=== PATIENT | female | born 1990 | race Two or more races ===

== ENCOUNTER 2018-10-27 18:34 | Emergency (ER) | payer SELFPAY ==
[~2018-10-27] VITALS: Ht 157.5 cm; Wt 72.1 kg
[2018-10-27 19:02] LABS: BILIRUBIN,URINE NEGATIVE (NEG); CLARITY,URINE CLEAR; COLOR,URINE YELLOW; NITRITE,URINE NEGATIVE (NEG); PROTEIN,URINE NEGATIVE (NEG-TRACE)
[2018-10-27 19:09] LABS: AMORPHOUS SEDIMENT,UR PRESENT /HPF; BACTERIA,URINE MODERATE /HPF (0-FEW); RBC,URINE 0 /HPF (0-2); SQUAMOUS EPITHELIAL CELL,UR MANY /LPF; WBC,URINE OCC /HPF (0-4); YEAST,URINE PRESENT /HPF
--- NOTE | 2018-10-27 20:03 | PHYS DOC ---
Past Medical History Past Medical History: No Pertinent History Past Surgical History: Alcohol Use: None Drug Use: None Adult General Chief Complaint Chief Complaint: ABDOMINAL PAIN HPI HPI 28-year-old female presents to ER for complaints of low abd pain radiating across lower abd. She reports she has had some vaginal discharge. She reports she took Tylenol at 10 AM with minimal relief in pain. She reports she's been for the past 6 years and monogamous relationship denies any concerns for STDs. Patient denies urinary symptoms, fever, vomiting, or diarrhea. She reports she had slight nausea with pain- currently denies. LMP 10/12/18. Patient denies any recent falls or injury. Patient speaks minimal Romansh and her sister is at bedside who is translating. Offered translation phone for communication however patient wanted sister to translate. Review of Systems Review of Systems Constitutional: Denies fever or chills. Denies fatigue Respiratory: Denies cough or shortness of breath [] Cardiovascular: No additional information not addressed in HPI [] GI: Denies vomiting, bloody stools or diarrhea. Reports bilat. lower abd/ suprapubic pain- intermittent nausea with pain : Denies dysuria or hematuria. Reports small amount of vaginal discharge white with no odor. Denies abnormal vaginal bleeding Musculoskeletal: Denies back pain or joint pain [] Integument: Denies rash, swelling or skin lesions [] Neurologic: Denies headache, focal weakness or sensory changes [] All other systems were reviewed and found to be within normal limits, except as documented in this note. Current Medications Current Medications Current Medications Medications (Trade) Dose Ordered Sig/Shawn Start Time Stop Time Status Last Admin Dose Admin Acetaminophen/ Hydrocodone Bitart (Lortab 5/325) 1 tab STK-MED ONCE 10/27/18 21:44 10/27/18 21:45 DC Allergies Allergies Allergies Coded Allergies Type Severity Reaction Last Updated Verified No Known Drug Allergies 10/27/18 No Physical Exam Physical Exam Constitutional: Well developed, well nourished, no acute distress, non-toxic appearance. [] HENT: Normocephalic, atraumatic, oropharynx moist, nose normal. [] Eyes: Pupils equal, conjunctiva normal, no discharge. [] Neck: Normal range of motion, supple Cardiovascular: Heart rate regular rhythm, no murmur [] Lungs & Thorax: Bilateral breath sounds clear to auscultation. Resp. equal/ nonlabored Abdomen: Bowel sounds normal, soft- no rigidity or distention, diffuse tenderness across lower abdomen into suprapubic with no focal area, no rebound tenderness, no masses Skin: Warm, dry, no erythema, no rash. [] Back: No tenderness, no CVA tenderness. [] Extremities: No tenderness, no cyanosis, no clubbing, ROM intact, no edema. [] Neurologic: Alert and oriented X 3, normal motor function, normal sensory function, no focal deficits noted. [] Psychologic: Affect normal, judgement normal, mood normal. [] Current Patient Data Vital Signs Vital Signs Date Time Temp Pulse Resp B/P (MAP) Pulse Ox O2 Delivery O2 Flow Rate FiO2 10/27/18 21:49 18 98 Room Air 10/27/18 21:46 67 116/58 (77) 10/27/18 18:40 97.6 97.6 Lab Values Laboratory Tests Test 10/27/18 18:37 10/27/18 18:42 Urine Collection Type Unknown Urine Color Yellow Urine Clarity Clear Urine pH 7.0 Urine Specific [place] 1.020 Urine Protein Negative mg/dL (NEG-TRACE) Urine Glucose (UA) Negative mg/dL (NEG) Urine Ketones (Stick) Negative mg/dL (NEG) Urine Blood Negative (NEG) Urine Nitrite Negative (NEG) Urine Bilirubin Negative (NEG) Urine Urobilinogen Dipstick 1.0 mg/dL (0.2 mg/dL) Urine Leukocyte Esterase Small (NEG) Urine RBC 0 /HPF (0-2) Urine WBC Occ /HPF (0-4) Urine Squamous Epithelial Cells Many /LPF Urine Amorphous Sediment Present /HPF Urine Bacteria Moderate /HPF (0-FEW) Urine Mucus Slight /LPF Urine Yeast Present /HPF POC Urine HCG, Qualitative Hcg negative (Negative) Microbiology 10/27/18 Wet Prep - Final, Complete EKG EKG [] Radiology/Procedures Radiology/Procedures Pelvic Exam: KRISTIE Bolaños present 1945 Abdomen: Diffuse tenderness in all lower abd/suprapubic area- no distention External Genitalia: Normal Skin-no lesions or rash Speculum: Normal vaginal mucosa- no erythema, cervical os closed, normal cervical discharge- scant amount of white discharge no odor Bimanual: No adnexal masses- diffuse tenderness on bimanual exam, No CMT PROCEDURE: PELVIS ULTRASOUND Examination: PELVIS ULTRASOUND History: pelvic pain x 2 days
lmp 10/12/18

neg preg urine

dom follicle on ro 1.9 x 1.5 x 1.9 cm
+ blood flow bilat ovaries
uterus appears anteverted, retroflexed Comparison/Correlation: None Findings: Transabdominal pelvic ultrasound exam was performed. Uterus measures 11.4 cm x 5.6 cm x 3.9 cm. It is retroflexed. Endometrial thickness is 0.5 cm. No intrauterine gestation or other fluid collection. Right adnexa measures 3 cm x 2.17 x 2.6 cm. Left adnexa measures 2.2 cm x 2 cm x 1.6 cm. No ovarian torsion. Right ovarian follicle measuring 1.9 cm diameter is present and appears physiologic. No pelvic free fluid. Impression: No suspicious pelvic process. Electronically signed by: Kenrick Leslie MD (10/27/2018 10:03 PM) [facility] DICTATED and SIGNED BY: KENRICK LESLIE MD DATE: 10/27/182151 Course & Med Decision Making Course & Med Decision Making Pertinent Labs and Imaging studies reviewed. (See chart for details) 2204: Patient was evaluated in the ER with complaints of lower abdominal pain which is been ongoing for the past couple of days. Patient did have yeast reported on her UA. She did have bilateral adnexal tenderness so ultrasound was obtained- with results "Right ovarian follicle measuring 1.9 cm diameter is present"- otherwise no other abnormal findings on imaging. This was discussed with patient and her sister who continues to translate. Patient on reexamination has diffuse tenderness in all abdomen with no focal area-no rebound tenderness, distention, or rigidity. Patient initially had tenderness only on palp. of lower abdomen and so discussed obtaining labs for further evaluation. Patient is wanting no additional testing at this time stating she plans to follow up for further care and treatment outpatient with primary care physician. Patient's sister reports she has episodes of menstrual cramps which are similar to what patient is experiencing. Discussed [id number] options for menstrual cramps surges Midol. Will provide patient with single dose of Diflucan for yeast and small quantity of [place] with discharge paperwork. Will provide clinic and physician referral information for follow-up purposes with discharge paperwork. Patient's vital signs are stable and she remains afebrile at 98.6. She remains nontoxic in appearance and in no visible distress at this time. She continues to deny any nausea and has had no vomiting episodes while in the ER. Education provided on signs and symptoms to return to ER for and discharge instructions were discussed. Dragon Disclaimer Dragon Disclaimer This electronic medical record was generated, in whole or in part, using a voice recognition dictation system. Departure Departure Impression: Primary Impression: Abdominal pain Additional Impression: Yeast infection Disposition: HOME, SELF-CARE Condition: STABLE Referrals: NO PCP (PCP) Patient Instructions: Abdominal Pain (Nonspecific) Additional Instructions: You preferred to have no labs done while in the Emergency Department with plans to follow-up outpatient with primary doctor for further evaluation. As discussed if symptoms worsen return to Emergency Department for re-evaluation. You can take [id number]-[id number] ibuprofen as needed for pain as directed on container. As discussed you can try [id number] menstrual cramp medication such as Midol as directed on container. Your urine had yeast in it so you are being provided with prescription for single dose of Diflucan as treatment. Scripts Hydrocodone/Apap 5-325 (NORCO 5-325 TABLET) 1 Each Tablet 1 TAB PO PRN Q6HRS PRN for PAIN, #8 TAB 0 Refills Prov: GIDEON GUNTER APRN 10/27/18 Fluconazole (DIFLUCAN) 150 Mg Tablet 1 TAB PO ONCE, #1 TAB 0 Refills Prov: GIDEON GUNTER APRN 10/27/18 Problem Qualifiers GIDEON GUNTER APRN Oct 27, 2018 20:03
[2018-10-27] MEDS ORDERED: HYDROcodone/APAP 5/325MG 1 TAB TABLET ONE (21:44)
[2018-10-27] MEDS ORDERED: HYDROcodone/APAP 5/325MG 1 TAB TABLET PO ONE (21:45)
[2018-10-27 21:46] VITALS: BP 116/58
--- NOTE | 2018-10-27 22:08 | RAD ---
Examination: PELVIS ULTRASOUND History: pelvic pain x 2 days
lmp 10/12/18

neg preg urine

dom follicle on ro 1.9 x 1.5 x 1.9 cm
+ blood flow bilat ovaries
uterus appears anteverted, retroflexed Comparison/Correlation: None Findings: Transabdominal pelvic ultrasound exam was performed. Uterus measures 11.4 cm x 5.6 cm x 3.9 cm. It is retroflexed. Endometrial thickness is 0.5 cm. No intrauterine gestation or other fluid collection. Right adnexa measures 3 cm x 2.17 x 2.6 cm. Left adnexa measures 2.2 cm x 2 cm x 1.6 cm. No ovarian torsion. Right ovarian follicle measuring 1.9 cm diameter is present and appears physiologic. No pelvic free fluid. Impression: No suspicious pelvic process. Electronically signed by: Kenrick Julien MD (10/27/2018 10:03 PM) [facility]
[2018-10-27] MEDS ORDERED: FLUC150T PO (22:26)
[2018-10-27] MEDS ORDERED: HYDR-3164 PO (22:26)
[2018-10-29 14:35] LABS: GC PROBE Negative (Negative)
== END 2018-10-27 22:32 | disposition home or self-care (01) ==
LOC: ER 18:34
DX: R10.2 Pelvic and perineal pain (principal); R10.32 Left lower quadrant pain; R10.31 Right lower quadrant pain; B37.3 Candidiasis of vulva and vagina; Z98.890 Other specified postprocedural states
CPT/HCPCS: 76856; 81001; 81025; 87086; 87491; 87591; 99284; Q0111

== ENCOUNTER 2018-11-19 05:35 | Emergency (ER) | payer SELFPAY ==
[~2018-11-19] VITALS: Ht 167.6 cm; Wt 72.1 kg
[~2018-11-19 05:35] MED LIST: FLUC150T PO; HYDR-3164 PO
[2018-11-19 06:49] LABS: CALCIUM 9.5 mg/dL (8.5-10.1); CREATININE 0.7 mg/dL (0.6-1.0); GFR 98.9
[2018-11-19 06:55] LABS: BASO % 0 % (0-3); EOS % 0 % (0-3); HEMOGLOBIN 12.7 g/dL (12.0-15.5); LYMPH # 0.4 x10^3/uL (1.0-4.8); LYMPH % 3 % (24-48); MEAN CORPUSCULAR HEMOGLOBIN 29 pg (25-35); MEAN CORPUSCULAR HGB CONC 33 g/dL (31-37); MEAN CORPUSCULAR VOLUME 88 fL (79-100); MONO # 0.2 x10^3/uL (0.0-1.1); MONO % 2 % (0-9); NEUT # 11.2 x10^3uL (1.8-7.7); NEUT % 95 % (31-73); PLATELET COUNT 227 x10^3/uL (140-400); RED BLOOD COUNT 4.44 x10^6/uL (3.50-5.40); RED CELL DISTRIBUTION WIDTH 13.9 % (11.5-14.5); WHITE BLOOD COUNT 11.9 x10^3/uL (4.0-11.0)
[2018-11-19] MEDS ORDERED: KETOROLAC 15 MG/ML VIAL. IV ONE (07:00)
[2018-11-19] MEDS ORDERED: ONDANSETRON PF 4 MG/2 ML VIAL. IV ONE ×2 (07:00→08:30)
[2018-11-19] MEDS ORDERED: IV NORMAL SALINE 1000ML BAG 1,000 ML IV ONE (07:00)
[2018-11-19] MEDS ORDERED: FAMOTIDINE 20 MG/2 ML VIAL IVP ONE (07:00)
[2018-11-19 07:08] LABS: ALBUMIN 3.8 g/dL (3.4-5.0); MAGNESIUM 1.6 mg/dL (1.8-2.4); TOTAL BILIRUBIN 0.4 mg/dL (0.2-1.0); TOTAL PROTEIN 7.8 g/dL (6.4-8.2)
[2018-11-19] MEDS ORDERED: POTASSIUM CHLORIDE 20 MEQ TABLET.ER. PO ONE (07:15)
[2018-11-19 07:28] LABS: BILIRUBIN,URINE NEGATIVE (NEG); CLARITY,URINE CLOUDY; COLOR,URINE YELLOW; NITRITE,URINE NEGATIVE (NEG); PROTEIN,URINE 30 mg/dL (NEG-TRACE); UROBILINOGEN,URINE 0.2 mg/dL (0.2 mg/dL)
[2018-11-19 07:30] LABS: BACTERIA,URINE MODERATE /HPF (0-FEW); SQUAMOUS EPITHELIAL CELL,UR MOD /LPF
[2018-11-19] MEDS ORDERED: MAGNESIUM SULFATE 2GM 50 ML IV ONE (07:30)
[2018-11-19] MEDS ORDERED: IBUP200T44 PO (08:57)
[2018-11-19] MEDS ORDERED: HYOS0.1265 SL (08:57)
[2018-11-19] MEDS ORDERED: FAMO-63 PO (08:57)
[2018-11-19] MEDS ORDERED: ONDA4TAB12 PO (08:57)
--- NOTE | 2018-11-19 08:58 | PHYS DOC ---
Past Medical History Past Medical History: No Pertinent History Past Surgical History: Alcohol Use: None Drug Use: None Adult General Chief Complaint Chief Complaint: NAUSEA/VOMITING/DIARRHA HPI HPI Patient is a 28 year old [f__sex] who presents with [] Review of Systems Review of Systems Constitutional: Denies fever or chills [] Eyes: Denies change in visual acuity, redness, or eye pain [] HENT: Denies nasal congestion or sore throat [] Respiratory: Denies cough or shortness of breath [] Cardiovascular: No additional information not addressed in HPI [] GI: Denies abdominal pain, nausea, vomiting, bloody stools or diarrhea [] : Denies dysuria or hematuria [] Musculoskeletal: Denies back pain or joint pain [] Integument: Denies rash or skin lesions [] Neurologic: Denies headache, focal weakness or sensory changes [] Endocrine: Denies polyuria or polydipsia [] All other systems were reviewed and found to be within normal limits, except as documented in this note. Current Medications Current Medications Current Medications Medications (Trade) Dose Ordered Sig/Shawn Start Time Stop Time Status Last Admin Dose Admin Famotidine (Pepcid Vial) 20 mg 1X ONCE 11/19/18 07:00 11/19/18 07:01 DC 11/19/18 06:38 20 MG Ketorolac Tromethamine (Toradol 15mg Vial) 15 mg 1X ONCE 11/19/18 07:00 11/19/18 07:01 DC 11/19/18 06:38 15 MG Magnesium Sulfate 50 ml @ 25 mls/hr 1X ONCE 11/19/18 07:30 11/19/18 09:29 11/19/18 07:41 25 MLS/HR Ondansetron HCl (Zofran) 4 mg 1X ONCE 11/19/18 08:30 11/19/18 08:31 DC 11/19/18 08:28 4 MG Potassium Chloride (Klor-Con) 40 meq 1X ONCE 11/19/18 07:15 11/19/18 07:18 DC 11/19/18 07:21 40 MEQ Sodium Chloride 1,000 ml @ 1,000 mls/hr 1X ONCE 11/19/18 07:00 11/19/18 07:59 DC 11/19/18 06:38 1,000 MLS/HR Allergies Allergies Allergies Coded Allergies Type Severity Reaction Last Updated Verified No Known Drug Allergies 10/27/18 No Physical Exam Physical Exam Constitutional: Well developed, well nourished, no acute distress, non-toxic appearance. [] HENT: Normocephalic, atraumatic, bilateral external ears normal, oropharynx moist, no oral exudates, nose normal. [] Eyes: PERRLA, EOMI, conjunctiva normal, no discharge. [] Neck: Normal range of motion, no tenderness, supple, no stridor. [] Cardiovascular:Heart rate regular rhythm, no murmur [] Lungs & Thorax: Bilateral breath sounds clear to auscultation [] Abdomen: Bowel sounds normal, soft, no tenderness, no masses, no pulsatile masses. [] Skin: Warm, dry, no erythema, no rash. [] Back: No tenderness, no CVA tenderness. [] Extremities: No tenderness, no cyanosis, no clubbing, ROM intact, no edema. [] Neurologic: Alert and oriented X 3, normal motor function, normal sensory function, no focal deficits noted. [] Psychologic: Affect normal, judgement normal, mood normal. [] Current Patient Data Vital Signs Vital Signs Date Time Temp Pulse Resp B/P (MAP) Pulse Ox O2 Delivery O2 Flow Rate FiO2 11/19/18 06:45 107 96/56 (69) 95 11/19/18 05:45 98.7 18 Room Air 98.7 Lab Values Laboratory Tests Test 11/19/18 05:55 11/19/18 06:40 11/19/18 06:51 White Blood Count 11.9 x10^3/uL (4.0-11.0) H Red Blood Count 4.44 x10^6/uL (3.50-5.40) Hemoglobin 12.7 g/dL (12.0-15.5) Hematocrit 39.0 % (36.0-47.0) Mean Corpuscular Volume 88 fL (79-100) Mean Corpuscular Hemoglobin 29 pg (25-35) Mean Corpuscular Hemoglobin Concent 33 g/dL (31-37) Red Cell Distribution Width 13.9 % (11.5-14.5) Platelet Count 227 x10^3/uL (140-400) Neutrophils (%) (Auto) 95 % (31-73) H Lymphocytes (%) (Auto) 3 % (24-48) L Monocytes (%) (Auto) 2 % (0-9) Eosinophils (%) (Auto) 0 % (0-3) Basophils (%) (Auto) 0 % (0-3) Neutrophils # (Auto) 11.2 x10^3uL (1.8-7.7) H Lymphocytes # (Auto) 0.4 x10^3/uL (1.0-4.8) L Monocytes # (Auto) 0.2 x10^3/uL (0.0-1.1) Eosinophils # (Auto) 0.0 x10^3/uL (0.0-0.7) Basophils # (Auto) 0.0 x10^3/uL (0.0-0.2) Platelet Estimate Pending Sodium Level 142 mmol/L (136-145) Potassium Level 3.0 mmol/L (3.5-5.1) L Chloride Level 105 mmol/L (98-107) Carbon Dioxide Level 23 mmol/L (21-32) Anion Gap 14 (6-14) Blood Urea Nitrogen 9 mg/dL (7-20) Creatinine 0.7 mg/dL (0.6-1.0) Estimated GFR (Cockcroft-Gault) 98.9 BUN/Creatinine Ratio 13 (6-20) Glucose Level 95 mg/dL (70-99) Calcium Level 9.5 mg/dL (8.5-10.1) Magnesium Level 1.6 mg/dL (1.8-2.4) L Total Bilirubin 0.4 mg/dL (0.2-1.0) Aspartate Amino Transferase (AST) 19 U/L (15-37) Alanine Aminotransferase (ALT) 42 U/L (14-59) Alkaline Phosphatase 78 U/L (46-116) Total Protein 7.8 g/dL (6.4-8.2) Albumin 3.8 g/dL (3.4-5.0) Albumin/Globulin Ratio 1.0 (1.0-1.7) Lipase 70 U/L (73-393) L Urine Collection Type Unknown Urine Color Yellow Urine Clarity Cloudy Urine pH 6.0 Urine Specific [place] 1.020 Urine Protein 30 mg/dL (NEG-TRACE) Urine Glucose (UA) Negative mg/dL (NEG) Urine Ketones (Stick) >=80 mg/dL (NEG) Urine Blood Trace (NEG) Urine Nitrite Negative (NEG) Urine Bilirubin Negative (NEG) Urine Urobilinogen Dipstick 0.2 mg/dL (0.2 mg/dL) Urine Leukocyte Esterase Small (NEG) Urine RBC 3-5 /HPF (0-2) Urine WBC 5-10 /HPF (0-4) Urine Squamous Epithelial Cells Mod /LPF Urine Bacteria Moderate /HPF (0-FEW) POC Urine HCG, Qualitative Hcg negative (Negative) Laboratory Tests 11/19/18 05:55 Laboratory Tests 11/19/18 05:55 EKG EKG [] Radiology/Procedures Radiology/Procedures [] Course & Med Decision Making Course & Med Decision Making Pertinent Labs and Imaging studies reviewed. (See chart for details) [] Dragon Disclaimer Dragon Disclaimer This electronic medical record was generated, in whole or in part, using a voice recognition dictation system. Departure Departure Impression: Primary Impression: Abdominal pain Additional Impressions: Nausea Dental caries Hypokalemia Hypomagnesemia Disposition: HOME, SELF-CARE Condition: IMPROVED Referrals: NO PCP (PCP) Patient Instructions: Abdominal Pain (Nonspecific), Dental Caries-Brief, Hypokalemia-Brief, Hypomagnesemia, Nausea and Vomiting, [id number]-[id number], Potassium Content of Foods Scripts Ibuprofen (MOTRIN IB) 200 Mg Tablet 600 MG PO TID PRN PRN for PAIN, #30 TAB Prov: DANIELA COLON DO 11/19/18 Hyoscyamine Sulfate (LEVSIN-SL) 0.125 Mg Tab.subl 1-2 TAB SL PRN Q4HRS PRN for PAIN, #30 TAB 0 Refills Prov: DANIELA COLON DO 11/19/18 Ondansetron (ONDANSETRON ODT) 4 Mg Tab.rapdis 1 TAB PO PRN Q6-8HRS PRN for NAUSEA, #16 TAB Prov: DANIELA COLON DO 11/19/18 Famotidine (PEPCID) 20 Mg Tablet 20 MG PO BID, #20 TAB Prov: DANIELA COLON DO 11/19/18 Problem Qualifiers Primary Impression: Abdominal pain Abdominal location: generalized Qualified Codes: R10.84 - Generalized abdominal pain DANIELA COLON DO Nov 19, 2018 08:58
[2018-11-19 09:24] LABS: % BANDS 19 % (0-9); % LYMPHS 7 % (24-48); % MONOS 4 % (0-10); % MYELOS 1 % (0-0); % SEGS 69 % (35-66); PLT ESTIMATE ADEQUATE (ADEQUATE)
[2018-11-19 09:39] VITALS: BP 90/52
== END 2018-11-19 09:52 | disposition home or self-care (01) ==
LOC: ER 05:35
DX: E87.6 Hypokalemia (principal); R10.84 Generalized abdominal pain; R11.0 Nausea; K02.9 Dental caries, unspecified; E83.42 Hypomagnesemia; Z98.890 Other specified postprocedural states
CPT/HCPCS: 36415; 80053; 81001; 81025; 83690; 83735; 85007; 85025; 87086; 96365; 96366; 96375; 96376; 99283; J1885; J2405; J3475; J3490; J7030

== ENCOUNTER 2021-07-17 21:32 | Emergency (ER) | payer SELFPAY ==
[~2021-07-17 21:32] MED LIST changes: +FAMO-63 PO; +HYOS0.1265 SL; +IBUP200T44 PO; +ONDA4TAB12 PO
== END 2021-07-17 21:36 | disposition left against medical advice (07) ==
LOC: ER 21:32
DX: R05 Cough (principal); R06.02 Shortness of breath; Z53.21 Procedure and treatment not carried out due to patient leaving prior to being seen by health care provider